=== PATIENT | female | born 1950 | race Caucasian/White ===

== ENCOUNTER 2021-08-14 08:54 | Day surgery (SDC) | payer MEDICARE, OTHER ==
[~2021-08-14 08:54] MED LIST: Lactated Ringers 1,000 ML IV SCH; Lidocaine 1%/Sod Bicarbonate in NS 8.4% 1 ML Syringe IDERM PRN; Sodium Chloride 0.9% 10 ML Syringe FLUSH PRN
--- NOTE | 2021-08-14 09:46 | PCM.PREANE ---
Preanesthetic Assessment - Procedure Proposed Procedure: Total vaginal hysterectomy with bilateral salpingo-oophorectomy, anterior and posterior repair with perineoplasty - Anesthesia/Transfusion/Family Hx Anesthesia History: Prior Anesthesia Without Reaction Family History of Anesthesia Reaction: No Transfusion History: No Prior Transfusion(s) Intubation History: Unknown - Review of Systems General: No Symptoms Pulmonary: No Symptoms Cardiovascular: No Symptoms Gastrointestinal: No Symptoms Neurological: No Symptoms Other: Reports: Easy Bleeding, Easy Bruising, Liver Problems (elevated LFTs), Depression, Anxiety - Physical Assessment NPO Status Date: 08/13/21 NPO Status Time: 17:00 Vital Signs: BP 135/62 HR 56 98% 97.9 RR 18 Height: 1.65 m Weight: 94.7 kg ASA Class: 3 Mental Status: Alert & Oriented x3 Airway Class: Mallampati = 2 Dentition: Reports: Partial, Missing Tooth/Teeth Thyro-Mental Finger Breadths: 3 Mouth Opening Finger Breadths: 3 ROM/Head Extension: Full Lungs: Clear to Auscultation, Normal Respiratory Effort, Wheezing (wheezing in bases) Cardiovascular: Regular Rate, Regular Rhythm, Murmurs - Lab Values: Labs reviewed and okay to proceed - Imaging/EKG Impressions: EKG SB HR 50; poor R wave progression likely due to lead placement Q waves present leads I and aVL consider old lateral wall infarct See stress test and ECHO results on chart - Allergies Allergies/Adverse Reactions: Allergies Allergy/AdvReac Type Severity Reaction Status Date / Time No Known Allergies Allergy Verified 10/05/19 14:52 - Blood Blood Available: Yes - Acknowledgements Anesthesia Type Planned: General Anesthesia Pt an Appropriate Candidate for the Planned Anesthesia: Yes Alternatives and Risks of Anesthesia Discussed w Pt/Guardian: Yes Pt/Guardian Understands and Agrees with Anesthesia Plan: Yes PreAnesthesia Questionnaire HEENT History: Reports: Other (See Below) Other HEENT History: has partials, glasses, hearing aides Cardiovascular History: Reports: Heart Murmur Respiratory History: Reports: None Gastrointestinal History: Reports: None, Other (See Below) Other Gastrointestinal History: Elevated LFTs Genitourinary History: Reports: Other (See Below) Other Genitourinary History: cystocele, uterine prolapse PRINTER ASSISTANT History: Reports: None Musculoskeletal History: Reports: Arthritis Neurological History: Reports: None Psychiatric History: Reports: Anxiety, Depression, Other (See Below) Other Psychiatric History: insomnia Endocrine/Metabolic History: Reports: Obesity/BMI 30+, Osteopenia Hematologic History: Reports: None Immunologic History: Reports: None Oncologic (Cancer) History: Reports: None Dermatologic History: Reports: None - Past Surgical History HEENT Surgical History: Reports: Cataract Surgery GI Surgical History: Reports: Appendectomy, Cholecystectomy Musculoskeletal Surgical History: Reports: Shoulder Replacement Dermatological Surgical History: Reports: Other (See Below) (Excision of basal cell carcinoma) - SUBSTANCE USE Tobacco Use Status *Q: Current Every Day Tobacco User Tobacco Use Within Last Twelve Months: Cigarettes Second Hand Smoke Exposure: No Days Per Week of Alcohol Use: 0 Number of Drinks Per Day: 0 Total Drinks Per Week: 0 Recreational Drug Use History: No - HOME MEDS Home Medications: Home Meds Citalopram Hydrobromide [Celexa] 40 mg PO DAILY 05/29/19 [History] LORazepam 0.5 - 1 mg PO DAILY PRN 05/29/19 [History] Multivitamin [Multiple Vitamins] 1 tab PO DAILY 05/29/19 [History] Calcium Carbonate [Calcium] 600 mg PO DAILY 10/05/19 [History] Cholecalciferol (Vitamin D3) [Vitamin D3] 5,000 unit PO DAILY 10/05/19 [History] Aspirin [Ecotrin EC] 325 mg PO BID #84 tab.ec 10/09/19 [Rx] Cyclobenzaprine [Flexeril] 5 mg PO BID PRN #20 tablet 10/09/19 [Rx] Docusate Sodium [Colace] 100 mg PO BID cap 10/09/19 [Rx] Famotidine [Pepcid] 20 mg PO Q12H tablet 10/09/19 [Rx] Magnesium Hydroxide [Milk of Magnesia] 30 ml PO BID PRN cup 10/09/19 [Rx] Sennosides [Senna] 8.6 mg PO BID PRN tablet 10/09/19 [Rx] bisacodyL [Dulcolax] 5 mg PO DAILY PRN tablet 10/09/19 [Rx] oxyCODONE 5 - 10 mg PO Q4H PRN #60 tablet 10/09/19 [Rx] - CURRENT (IN HOUSE) MEDS Current Meds: Current Medications Lactated Ringer's (Ringers, Lactated) 1,000 mls @ 125 mls/hr IV ASDIRECTED NEW Stop: 08/14/21 23:00 Lidocaine/Sodium Bicarbonate (Lidocaine 1%/Sod Bicarbonate In Ns 8.4% 1 Ml Syringe) 0.25 ml IDERM ONETIME PRN PRN Reason: Prior to IV Start Stop: 08/14/21 18:00 Sodium Chloride (Sodium Chloride 0.9% 10 Ml Syringe) 10 ml FLUSH ASDIRECTED PRN PRN Reason: Keep Vein Open Stop: 08/14/21 18:00
[2021-08-14] MEDS ORDERED: Albuterol 0.083% 2.5 MG/3 ML Neb Soln NEB ONE (10:04)
[2021-08-14] MEDS ORDERED: fentaNYL 250 MCG/5 ML SDV ONE (10:31)
[2021-08-14] MEDS ORDERED: Rocuronium 50 MG/5 ML Vial ONE (10:31)
[2021-08-14] MEDS ORDERED: Propofol 200 MG/20 ML SDV ONE (10:31)
[2021-08-14] MEDS ORDERED: Ondansetron 4 MG/2 ML SDV ONE (10:31)
[2021-08-14] MEDS ORDERED: Lidocaine 1% 4 ML ONE (10:32)
[2021-08-14] MEDS ORDERED: Ketorolac 30 MG/ML SDV ONE (10:33)
[2021-08-14] MEDS ORDERED: ceFAZolin 1 GM Vial ONE (10:36)
[2021-08-14] MEDS: Lidocaine 1% with EPINEPHrine 1:100,000 10 ML MDV ONE ×2 (11:05→12:09)
[2021-08-14] MEDS: Sodium Chloride 0.9% 50 ML SDV ONE ×2 (11:06→12:09)
[2021-08-14] MEDS ORDERED: Lactated Ringers 1,000 ML ONE (12:15)
[2021-08-14] MEDS ORDERED: fentaNYL 100 MCG/2 ML SDV IVPUSH PRN (13:14)
--- NOTE | 2021-08-14 13:15 | PCM.POSTAN ---
POST ANESTHESIA ASSESSMENT - MENTAL STATUS Mental Status: Alert, Oriented - VITAL SIGNS Vital Signs: Last Vital Signs Temp 36.6 C 08/14/21 09:06 Pulse 56 L 08/14/21 09:06 Resp 18 08/14/21 09:06 BP 135/65 08/14/21 09:06 Pulse Ox 98 08/14/21 09:06 - RESPIRATORY Respiratory Status: Respiratory Rate WNL, Airway Patent, O2 Saturation Stable, Supplemental Oxygen - CARDIOVASCULAR CV Status: Pulse Rate WNL, Blood Pressure Stable - GASTROINTESTINAL GI Status: No Symptoms - PAIN Pain Score: 0 - POST OP HYDRATION Hydration Status: Adequate & Stable - OBSERVATIONS Free Text/Narrative:: no anesthesia complications noted
[2021-08-14] MEDS ORDERED: Acetaminophen/oxyCODONE 325-5 MG Tab PO PRN (13:57)
[2021-08-14] MEDS ORDERED: Ondansetron 4 MG/2 ML SDV IVPUSH PRN (13:57)
[2021-08-14] MEDS ORDERED: Ibuprofen 600 MG Tab PO PRN (14:00)
--- NOTE | 2021-08-14 14:06 | PCM.OPNOTE ---
- General Post-Op/Procedure Note Date of Surgery/Procedure: 08/14/21 Operative Procedure(s): Total vaginal hysterectomy, bilateral salpingo- oophorectomy, modified Moschcowitz procedure, posterior vaginal repair with perineoplasty. Findings: 1. Grade 3 uterine prolapse 2. Grade 12 cystocele 3. Grade 2 rectocele Pre Op Diagnosis: 1. Cystocele. 2. Uterine prolapse. 3. Rectocele Post-Op Diagnosis: Same Anesthesia Technique: General ET Tube Other Anesthesia Type: Lidocaine quarter percent with [id number] cc totallocal Primary Surgeon: Rosalio Reinoso Secondary Surgeon: Sea Gutierrez Anesthesia Provider: Kike Levine Reason Fleet Assistant Was Necessary: Retraction, assistance, patient safety, quality of care. Pathology: Uterus, bilateral fallopian tubes, bilateral ovaries in 1 specimen container. Fluid Replacement, Intraop: 1,500 EBL in mLs: 25 Complications: None Condition: Good Free Text/Narrative:: Surgery duration: 47 minutes Procedure: The patient was placed in supine position on the operating table. General endotracheal anesthesia was accomplished. After positioning, and adequate prep and drape, the procedure was then performed. Sterile speculum was placed in the vagina and cervix was visualized. Cervix was injected with lidocaine quarter percent with epinephrine-20 mL used. A full circumference incision was made in the cervical epithelium. The bladder was pushed well back off cervix. Posterior cul-de-sac was then entered sharply without problems. Left uterosacral was crossclamped with a Enseal vessel closure system. The left uterosacral and then the right uterosacral ligament pedicles were developed using the Enseal system. The anterior cul-de-sac was then entered without problems and the uterine vasculature, cardinal ligament and broad ligament then developed using Enseal vessel closure system. The uterus was inverted at this time and upper broad ligament fallopian tube pedicles were crossclamped with Rachel clamps. Specimen was totally removed. Both these pedicles were then secured with the Enseal vessel closure system.. Left and right fallopian tube and right and left ovaries were normal in appearance for age. Using Enseal vessel closure system each of the tubes and ovaries were then removed and sent with the specimen. The patient was found to be hemostatically intact at this time. Modified Moschcowitz suture was placed to reduce the size of the posterior cul-de-sac area remaining after vaginal hysterectomy was performed. The posterior vaginal cuff was sutured for hemostat ic reasons with a running locked suture of 0 Monocryl from the 2 o'clock position to the 10 o'clock position. Vaginal cuff was then closed from right to left side with a running locked suture of 0 Monocryl. Posterior vaginal repair was then performed: The uppermost portion of the rectocele was identified and was grasped midline with an Allis clamp. The introital area was grasped at approximately the 4:00 and 8:00 positions at the junction of the vaginal and vulvar epithelium. The area of epithelium was then infiltrated with lidocaine quarter percent with epinephrine. A adis-shaped piece of epithelium was removed from the posterior introital and perineal area. The vaginal epithelium was then undermined superiorly to the top of the rectocele. Was then incised midline. With sharp and blunt dissection the epithelium was then dissected off of the underlying vesicovaginal fascia. At this point approximately 5 sutures of 0 Monocryl were placed to reapproximate the lateral supportive tissue midline and reduce the rectocele. The excess epithelium was then excised and the epithelium overlying the rectocele repair was then reapproximated with a running suture of 3-0 Monocryl. Perineoplasty was then performed with approximately 3 V-shaped stitches of 0 Monocryl in placed to reapproximate the lateral tissue midline, rebuild the perineum about 1 cm and the vagina approximately 1 cm. The epithelium of the introitus and perineal body was then reapproximated using 3-0 Monocryl in an episiotomy repair fashion. At this time sponge, instrument and needle counts were correct. The patient was returned to supine position and was discharged from the operating room in good condition. Patient was returned to supine position and awakened from general endotracheal anesthesia. She tolerated the procedure and left the operating room in satisfactory condition.
--- NOTE | 2021-08-14 14:26 | PCM48HPAN ---
Post Anesthesia Note - EVALUATION WITHIN 48HRS OF ANESTHETIC Vital Signs in Normal Range: Yes Patient Participated in Evaluation: Yes Respiratory Function Stable: Yes Airway Patent: Yes Cardiovascular Function Stable: Yes Hydration Status Stable: Yes Pain Control Satisfactory: Yes Nausea and Vomiting Control Satisfactory: Yes Mental Status Recovered: Yes Vital Signs: Last Vital Signs Temp 36.4 C 08/14/21 13:50 Pulse 46 L 08/14/21 13:50 Resp 12 08/14/21 13:50 BP 93/54 L 08/14/21 13:50 Pulse Ox 99 08/14/21 13:50 - COMMENTS/OBSERVATIONS Free Text/Narrative:: no anesthesia complications noted
== END 2021-08-14 15:53 | disposition home or self-care (01) ==
LOC: JD.SDS 08:54
PROVIDERS: ATTEND Obstetrics & Gynecology
DX: N80.0 Endometriosis of uterus (principal); N84.0 Polyp of corpus uteri; N83.8 Other noninflammatory disorders of ovary, fallopian tube and broad ligament; N81.4 Uterovaginal prolapse, unspecified; E66.9 Obesity, unspecified; F17.210 Nicotine dependence, cigarettes, uncomplicated; G47.00 Insomnia, unspecified; N39.0 Urinary tract infection, site not specified; Z79.899 Other long term (current) drug therapy; Z90.49 Acquired absence of other specified parts of digestive tract; Z98.890 Other specified postprocedural states
CPT/HCPCS: 36415; 57250; 58262; 86850; 86900; 86901; 88305; J0690; J1885; J2405; J2704; J2710; J3010; J7120; 00944; 99100